=== PATIENT | male | born 1990 | race Caucasian/White ===

== ENCOUNTER 2018-12-22 22:23 | Emergency (ER) | payer OTHER ==
--- NOTE | 2018-12-22 22:41 | ED Physician Documentation ---
History of Present Illness - Stated complaint Stated Complaint: THROAT LAC - Chief complaint Chief Complaint: Laceration - History obtained from History obtained from: Patient - History of Present Illness Timing: Prior to arrival - Additonal information Additional information: Patient is an otherwise healthy 28-year-old male presenting with multiple lacerations to the left neck after accidentally tripping and cutting himself on an aluminum post he was caring. Patient reports that he was building a pool table and removing aluminum material to the garbage when he accidentally tripped and cut himself. Patient denies other injuries or complaints. Patient reports mild discomfort, as well as bleeding, which is controlled with pressure. Patient denies changes in voice, difficulty swallowing, difficulty breathing. Tetanus current. Patient denies other improving or worsening factors to his symptoms. Review of Systems Skin: reports: Laceration (s) PD PAST MEDICAL HISTORY - Past Medical History Past Medical History: No - Past Surgical History Past Surgical History: No - Present Medications Home Medications: Ambulatory Orders Medication Instructions Recorded Confirmed No Known Home Medications 12/22/18 12/22/18 - Allergies Allergies/Adverse Reactions: Allergies Allergy/AdvReac Type Severity Reaction Status Date / Time No Known Drug Allergies Allergy Verified 12/22/18 22:31 PD ED PE NORMAL - General General: Alert and oriented X 3, No acute distress, Well developed/nourished - HEENT HEENT: Atraumatic, Moist mucous membranes - Cardiac Cardiac: RRR, No murmur - Respiratory Respiratory: No respiratory distress, Clear bilaterally - Derm Derm: Normal color, Warm and dry, No rash, Other (About 2 cm linear laceration to upper left lateral neck, otherwise uncomplicated, does not probe or involve underlying structures. About 2 cm linear laceration, also superficial and withou t damage to underlying structures, but with superficial extension for about 3-4 inches in pattern of dragging across neck) - Neuro Neuro: Alert and oriented X 3, No motor deficit, No sensory deficit - Psych Psych: Normal mood, Normal affect Results - Vitals Vitals: Vital Signs - 24 hr 12/22/18 22:29 Temperature 36.8 C Heart Rate 79 Respiratory 18 Rate Blood Pressure 146/99 H O2 Saturation 98 Oxygen O2 Source Room air Procedures - Laceration (location) Neck Length in cm: 4 (2 lacerations) Wound type: Linear, Curved Neurovascular status: Sensory intact, Motor intact, Vascular intact Anesthesia: LET, Lidocaine 1% with epi Wound Preparation: Irrigated copiously NS Skin layer closure: Nylon, Sutures - enter # (12 total- 3 for upper 2 cm linear laceration and 9 for lower 2 cm elliptical laceration) Other: Patient tolerated well, No complications, Neurovascular intact, Tetanus UTD Complexity: Simple PD MEDICAL DECISION MAKING - ED course Complexity details: re-evaluated patient, considered differential, d/w patient, d/w family ED course: Patient presenting with 2 superficial lacerations to the left neck after accidentally tripping while carrying aluminum material. Patient denies other injuries and tetanus up-to-date. Wounds do not probe and do not find evidence of other vascular injuries or damage to underlying structures. Do not feel that patient is at risk from an airway standpoint or experiencing other issues to this zone of the neck which would require further invasive testing or imaging.Letter placed and wound was irrigated and cleaned appropriately. Add itional anesthetic injected and wounds repaired without issue in the ED. Had extensive discussions regarding restrictions, timing of suture removal, supportive cares, return precautions, and follow-up. Patient voiced understanding and is comfortable with discharge plan. Departure - Departure Disposition: 01 Home, Self Care Clinical Impression: Laceration Condition: Good Instructions: ED Laceration All Follow-Up: your,doctor [Other] - Within 3 Days Comments: Please keep area clean and dry, using running water and soap only to clean. Please be aware of activities that could put strain on this area as additional strain or tension could cause reopening of wounds. Please return to ED, urgent care, your primary care physician in 10 days for suture removal. Return earlier if experiencing signs of infection, reopening of wound, or other concerns. Forms: Activity restrictions
[2018-12-22] MEDS ORDERED: LIDOCAINE-EPINEPH-TETRACAINE 3 ML SYRINGE TOP STA (22:51)
[2018-12-22] MEDS ORDERED: LIDOCAINE-EPINEPH-TETRACAINE 3 ML SYRINGE TOP ONE (22:56)
[2018-12-23] MEDS ORDERED: LIDOCAINE 1%-EPI 1:100000 30 ML MDV TD STA (00:04)
[2018-12-23 00:52] VITALS: BP 132/74
== END 2018-12-23 00:52 | disposition home or self-care (01) ==
LOC: ED 22:23
DX: S11.81XA Laceration without foreign body of other specified part of neck, initial encounter (principal); W26.8XXA Contact with other sharp object(s), not elsewhere classified, initial encounter; Y93.H3 Activity, building and construction
CPT/HCPCS: 12002; 99282; 99283

== ENCOUNTER 2019-10-22 20:15 | Emergency (ER) | payer OTHER ==
[2019-10-22] MEDS ORDERED: HYDROcod/ACETAM 5/325 MG TABLET PO STA (20:53)
--- NOTE | 2019-10-22 21:25 | ED Physician Documentation ---
History of Present Illness - Stated complaint Stated Complaint: POST OP/MOUTH PX - Chief complaint Chief Complaint: Heent - History obtained from History obtained from: Patient - History of Present Illness Quality: DULL Radiates to: THE ENTIRE MOUTH Improved by: REST Worsened by: CHEWING AND OPENING JAW - Additonal information Additional information: 29 YEAR OLD MALE PRESENTS TO THE EMERGENCY DEPARTMENT BECAUSE OF CONGESTION, FEVER AND POST OPERATIVE PAIN. PATIENT HAD TWO UPPER WISDOM TEETH EXTRACTED. DENTAL GRAFT WAS PLACED TO LOWER JAW AT THE SAME TIME BY HIS ORAL SURGEON ON BASE. PATIENT STARTED EXPERIENCING A SORE THROAT, NASAL CONGESTION AND FEVER SINCE YESTERDAY. HE CAME TO THE ED FOR EVALUATION. HE HAS NO DROOLING OR TRISMUS. PATIENT DENIES ANY FACIAL SWELLING OR PAIN WITH SWALLOWING. NO NECK PAIN OR NECK STIFFNESS. Review of Systems Constitutional: denies: Fever, Chills PD PAST MEDICAL HISTORY - Past Medical History Cardiovascular: None Respiratory: None Neuro: None Endocrine/Autoimmune: None GI: None : None HEENT: None Psych: None Musculoskeletal: None Derm: None - Past Surgical History Past Surgical History: No - Present Medications Home Medications: Ambulatory Orders Medication Instructions Recorded Confirmed Penicillin V Potassium 500 mg PO Q6HR #40 tablet 10/22/19 - Allergies Allergies/Adverse Reactions: Allergies Allergy/AdvReac Type Severity Reaction Status Date / Time No Known Drug Allergies Allergy Verified 12/22/18 22:31 - Social History Does the pt smoke?: No Smoking Status: Never smoker Does the pt drink ETOH?: Yes Does the pt have substance abuse?: No - Immunizations Immunizations are current?: Yes - POLST Patient has POLST: No PD ED PE NORMAL - General General: Alert and oriented X 3 - HEENT HEENT: Atraumatic, Other (NO FACIAL SWELLING NOTED. MILD TRISMUS. NO DROOLING. NO ABNORMAL SWELLING TO SUBMANDIBULAR REGION. SUTURES TO THE LOWER 1ST MOLARS WRE IN PLACE. NO DRAINAGE OR BLEEDING. 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 SUTURES WERE IN PLACE WITHOUT BLEEDING, DRAINAGE OR EVIDENCE OF ABSCESS. NO FACIAL SWELLING NOTED. NO DROOLING AND MILD TRISMUS WAS NOTED ON EXAM. INFLUENZA WAS NEGATIVE. HE LIKELY HAS UPPER RESPIRATORY INFECTION TO EXACERBATE HIS POST OPERATIVE PAIN. GIVEN HX OF FEVER, HOWEVER, I WILL GO AHEAD AND START HIM ON A COURSE OF PENICILLIN FOR POSSIBLE DENTAL INFECTION. PATIENT HAS A FOLLOW UP APPOINTMENT WITH HIS SURGEON NEXT WEEK. I ENCOURAGE HIM TO FOLLOW UP SOONER AND SOON POSSIBLE. STRICT RETURN INSTRUCTIONS WERE GIVEN. HE EXPRESSED VERBAL UNDERSTANDING. HE WAS COMFORTABLE WITH PLAN. PATIENT WAS DISCHARGED IN STABLE CONDITION. Departure - Departure Disposition: 01 Home, Self Care Clinical Impression: Pain, dental, Post-operative pain Condition: Stable Instructions: ED Tooth Pain, ED Post Op Pain, ED URI Viral Follow-Up: MARIO Roy [Provider Group] - Within 3 Days Prescriptions: Penicillin V Potassium 500 mg PO Q6HR #40 tablet Comments: PLEASE FOLLOW UP WITH YOUR ORAL SURGEON SOON POSSIBLE IN 2 DAYS. I BELIEVE YOUR FEVER IS LIKELY DUE TO YOUR UPPER RESPIRATORY INFECTION RATHER THAN COMPLICATIONS FROM YOUR PROCEDURE. HOWEVER, PLEASE GO AHEAD AND FILL THE ANTIBIOTIC IF YOUR PAIN PERSISTS, WORSENS OR A FEVER CONTINUES. Discharge Date/Time: 10/22/19 21:34
[2019-10-22 21:32] VITALS: BP 137/72
== END 2019-10-22 21:34 | disposition home or self-care (01) ==
LOC: ED 20:15
DX: K08.89 Other specified disorders of teeth and supporting structures (principal); G89.18 Other acute postprocedural pain; Z98.818 Other dental procedure status; R50.9 Fever, unspecified; R09.81 Nasal congestion
CPT/HCPCS: 87275; 87276; 99283; A9270

== ENCOUNTER 2019-10-27 20:59 | Emergency (ER) | payer OTHER ==
--- NOTE | 2019-10-27 21:50 | XRAY Report ---
Reason: Trauma Procedure Date: 10/27/2019 Accession Number: [id number] / [id number] Procedure: XR - Knee 4 View LT CPT Code: Final Report FULL RESULT: EXAM: LEFT KNEE RADIOGRAPHY EXAM DATE: 10/27/2019 09:39 PM. CLINICAL HISTORY: Trauma. COMPARISON: None. TECHNIQUE: 4 views. FINDINGS: Bones: Normal. No fractures or bone lesions. Joints: Normal. No effusion. No subluxations. Soft Tissues: Normal. No soft tissue swelling. IMPRESSION: No fracture or acute osseous abnormality. RADIA
--- NOTE | 2019-10-27 21:50 | XRAY Report ---
Reason: Trauma Procedure Date: 10/27/2019 Accession Number: [id number] / [id number] Procedure: XR - Knee 4 View RT CPT Code: Final Report FULL RESULT: EXAM: RIGHT KNEE RADIOGRAPHY EXAM DATE: 10/27/2019 09:40 PM. CLINICAL HISTORY: Trauma. COMPARISON: None. TECHNIQUE: 4 views. FINDINGS: Bones: Normal. No fractures or bone lesions. Joints: Normal. No effusion. No subluxations. Soft Tissues: Normal. No soft tissue swelling. IMPRESSION: No fracture or acute osseous abnormality. RADIA
--- NOTE | 2019-10-27 22:20 | ED Physician Documentation ---
PD HPI LOWER EXT INJURY - Stated complaint Stated Complaint: BILAT KNEE PX - Chief complaint Chief Complaint: Trauma Ext - History obtained from History obtained from: Patient - Additional information Additional information: Patient comes emergency department complaining of bilateral medial knee pain after [place] doing the splits on the dance floor last night. Patient states that he had had a couple drinks and that the dance floor was quite slippery. He was trying to do the "wobble" when his feet slipped out to the sides. Patient states that he thought he was going to do the splits, but then, his knees flexed medially. He did not feel a pop or snap, but has noticed pain in both knees today. He states the right is worse than the left. He has been able to walk around but has been limping on the right. He denies any distal numbness or tingling. No prior injury to the knee that he knows of. No other complaints at this time. Review of Systems Ten Systems: 10 systems reviewed and negative Constitutional: reports: Reviewed and negative Eyes: reports: Reviewed and negative Ears: reports: Reviewed and negative Nose: reports: Reviewed and negative Throat: reports: Reviewed and negative Cardiac: reports: Reviewed and negative Respiratory: reports: Reviewed and negative GI: reports: Reviewed and negative : reports: Reviewed and negative Skin: reports: Reviewed and negative Musculoskeletal: reports: Joint pain, Joint swelling, Pain with weight bearing Neurologic: reports: Reviewed and negative Psychiatric: reports: Reviewed and negative Endocrine: reports: Reviewed and negative Immunocompromised: reports: Reviewed and negative PD PAST MEDICAL HISTORY - Past Medical History Past Medical History: No Cardiovascular: None Respiratory: None Neuro: None Endocrine/Autoimmune: None GI: None : None HEENT: None Psych: None Musculoskeletal: None Derm: None - Past Surgical History Past Surgical History: Yes - Present Medications Home Medications: Ambulatory Orders Medication Instructions Recorded Confirmed No Known Home Medications 10/27/19 10/27/19 - Allergies Allergies/Adverse Reactions: Allergies Allergy/AdvReac Type Severity Reaction Status Date / Time No Known Drug Allergies Allergy Verified 10/27/19 21:07 - Social History Does the pt smoke?: No Smoking Status: Never smoker Does the pt drink ETOH?: Yes Does the pt have substance abuse?: No - Immunizations Immunizations are current?: Yes - POLST Patient has POLST: No PD ED PE NORMAL - Vitals Vital signs reviewed: Yes - General General: Alert and oriented X 3, No acute distress - HEENT HEENT: Atraumatic, EOMI - Neck Neck: Supple, no meningeal sign - Respiratory Respiratory: No respiratory distress - Derm Derm: Normal color, Warm and dry, No rash - Extremities Extremities: No deformity, Other (Patient has mild edema of his right knee and no edema of the left. He has tenderness along the medial aspect of both knees without deformity or effusion. Patient is able to fully extend both knees and is able to flex to about 45 degrees bilaterally for being inhibited by pain. Knees are stable with both anterior posterior stress and varus/valgus stress. No tenderness over the patella or lateral aspect of the knees bilaterally. Quadriceps and patellar tendons are intact.) - Neuro Neuro: Alert and oriented X 3 - Psych Psych: Normal mood, Normal affect Results - Vitals Vitals: Vital Signs - 24 hr 10/27/19 21:08 Temperature 37 C Heart Rate 73 Respiratory 16 Rate Blood Pressure 186/113 H O2 Saturation 98 Oxygen O2 Source Room air PD MEDICAL DECISION MAKING - ED course Complexity details: reviewed results, re-evaluated patient, considered differential, d/w patient ED course: Patient was sent for bilateral knee x-rays, which were found to be unremarkable. He was placed in a knee brace on the Right, as he felt that he needed more support. He also requested a pair of crutches. The patient was given a note for modified duty at work and [place] to discuss whether MRI is necessary, if his symptoms have not improved. Departure - Departure Disposition: 01 Home, Self Care Clinical Impression: Knee sprain, bilateral Condition: Good Instructions: ED Sprain Knee Comments: You may use the knee brace on the right knee, as needed, and crutches as needed, as well. You may weight-bear as tolerated. You will need to have light duty at work until your knee is completely without pain on weightbearing. Specifically, you should not do any lifting more than 20 pounds, and should not do any weighted pivoting. Please see your primary care physician in follow-up if you are not feeling any improvement at all in the next couple of weeks. You may take ibuprofen and Tylenol, as needed for discomfort, and use Ice and elevation to help with the pain and swelling, as well. Forms: Activity restrictions
[2019-10-27 22:34] VITALS: BP 146/90
== END 2019-10-27 22:45 | disposition home or self-care (01) ==
LOC: ED 20:59
DX: S83.92XA Sprain of unspecified site of left knee, initial encounter (principal); S83.91XA Sprain of unspecified site of right knee, initial encounter; X50.1XXA Overexertion from prolonged static or awkward postures, initial encounter; Y93.41 Activity, dancing
CPT/HCPCS: 99283; 99284

== ENCOUNTER 2019-11-19 14:44 | Outpatient (CLI) | payer OTHER ==
--- NOTE | 2019-11-20 03:38 | MRI Report ---
Reason: INJURY TO RT KNEE Procedure Date: 11/19/2019 Accession Number: [id number] / [id number] Procedure: MRI - Knee RT W/O CPT Code: Final Report FULL RESULT: EXAM: RIGHT KNEE MRI WITHOUT CONTRAST EXAM DATE: 11/19/2019 03:38 PM. CLINICAL HISTORY: INJURY TO RT KNEE. COMPARISON: None. TECHNIQUE: Multiplanar, multisequence T1-weighted and fluid-sensitive sequences of the knee without contrast. Other: None. FINDINGS: Bones: No fractures or subluxations. No marrow edema. No bone lesions. Articular Cartilage: Unremarkable. Medial Meniscus: The medial meniscus is intact. Lateral Meniscus: The lateral meniscus is intact. Cruciate Ligaments: The anterior and posterior cruciate ligaments are intact. Collateral Ligaments: The medial collateral and lateral collateral ligamentous structures are intact. Tendons: Edema at the pes anserinus bursa with adjacent thickening of the sartorius tendon. The quadriceps, patellar, semimembranosus, and popliteus tendons are unremarkable. Musculature: No edema or fatty atrophy. Other: No effusion. No popliteal cyst. No intra-articular bodies. The medial and lateral retinacula are intact. Focal edema and soft tissue thickening at the superior lateral aspect of Hoffa fat pad and lateral aspect of the fat adjacent to the suprapatellar joint (images 32 and 21 series 401). Otherwise, the soft tissues are intact. IMPRESSION: 1. Sartorius tendinopathy and pes anserinus bursitis. 2. Two foci of edema and soft tissue thickening at the superolateral aspect of Hoffa fat pad and at the suprapatellar fat may reflect focal synovitis or inflammation from rubbing from the overlying infrapatellar tendon and patella. RADIA
== END 2019-11-19 14:45 | disposition home or self-care (01) ==
LOC: DI 14:44
DX: S89.91XA Unspecified injury of right lower leg, initial encounter (principal); M71.9 Bursopathy, unspecified; R60.0 Localized edema

== ENCOUNTER 2020-01-25 11:47 | Emergency (ER) | payer OTHER ==
--- NOTE | 2020-01-25 13:09 | ED Physician Documentation ---
PD HPI NVD - Stated complaint Stated Complaint: NVD - Chief complaint Chief Complaint: Abd Pain - History obtained from History obtained from: Patient - History of Present Illness Timing - onset: Last night (2 am) Timing - details: Abrupt onset Associated symptoms: Loss of appetite. No: Fever, Abdominal pain, Hematemesis, Near syncope / syncope Contributing factors: Bad food (he says he ate [employer] late last evening and does not usually eat fast food. Onset few hours later.). No: Sick contact, Travel, Recent antibiotics Improved by: No: Laying still, Vomiting Worsened by: Eating (attempted PO causes nausea and repeat vomiting) Similar symptoms before: Has not had sx before Recently seen: Not recently seen Review of Systems Constitutional: reports: Fatigue. denies: Fever, Chills, Myalgias Nose: denies: Rhinorrhea / runny nose, Congestion Throat: denies: Sore throat Respiratory: denies: Cough GI: reports: Nausea, Vomiting, Diarrhea. denies: Abdominal Pain, Abdominal Swelling, Hematemesis, Bloody / black stool : denies: Dysuria, Frequency PD PAST MEDICAL HISTORY - Past Medical History Past Medical History: Yes Cardiovascular: None Respiratory: None Neuro: None Endocrine/Autoimmune: None GI: Ulcers : None HEENT: None Psych: None Musculoskeletal: None Derm: None - Past Surgical History Past Surgical History: Yes - Present Medications Home Medications: Ambulatory Orders Medication Instructions Recorded Confirmed Diphenoxylate/Atropine [Lomotil] 1 each PO QID PRN #12 tablet 01/25/20 Ondansetron Odt [Zofran] 4 mg TL Q6H PRN #10 tablet 01/25/20 - Allergies Allergies/Adverse Reactions: Allergies Allergy/AdvReac Type Severity Reaction Status Date / Time No Known Drug Allergies Allergy Verified 01/25/20 11:59 - Social History Does the pt smoke?: No Smoking Status: Never smoker Does the pt drink ETOH?: Yes Does the pt have substance abuse?: No - Immunizations Immunizations are current?: Yes - POLST Patient has POLST: No PD ED PE NORMAL - Vitals Vital signs reviewed: Yes - General General: Alert and oriented X 3, No acute distress, Well developed/nourished - HEENT HEENT: Pharynx benign - Neck Neck: Supple, no meningeal sign, No adenopathy - Cardiac Cardiac: RRR, No murmur - Respiratory Respiratory: Clear bilaterally - Abdomen Abdomen: Normal bowel sounds, Soft, Non distended, No organomegaly, Other (some tenderness epigastric to mid abd without peritoneal signs. ) Results - Vitals Vitals: Oxygen O2 Source Room air - Labs Labs: Laboratory Tests 01/25/20 13:30 Sodium 140 Potassium 3.8 Chloride 105 Carbon Dioxide 24 Anion Gap 11.0 BUN 15 Creatinine 0.8 Estimated GFR (MDRD) 115 Glucose 101 H Calcium 9.1 PD MEDICAL DECISION MAKING - ED course Complexity details: re-evaluated patient (feeling better with IV fluids and meds. ), considered differential (seems like viral GE. ), d/w patient Departure - Departure Disposition: Home, Self Care Clinical Impression: Nausea vomiting and diarrhea Condition: Stable Record reviewed to determine appropriate education?: Yes Instructions: ED Diet Vomiting Diarrhea Follow-Up: CESAR JORDAN MD [Primary Care Provider] - Prescriptions: Diphenoxylate/Atropine [Lomotil] 1 each PO QID PRN #12 tablet PRN Reason: Diarrhea Ondansetron Odt [Zofran] 4 mg TL Q6H PRN #10 tablet PRN Reason: Nausea / Vomiting Comments: Small frequent fluids and bland food. Use ondansetron if needed for nausea and Lomotil for diarrhea. Off work today and tomorrow. Recheck if not improved well and completely over the next day or 2. Return if worse again. Forms: Activity restrictions Discharge Date/Time: 01/25/20 15:15
[2020-01-25] MEDS ORDERED: SODIUM CHLORIDE 0.9% 1,000 ML IV STA (13:27)
[2020-01-25] MEDS ORDERED: ONDANSETRON 4 MG/2 ML VIAL IVP STA (13:27)
[2020-01-25] MEDS ORDERED: DIPHENOX/ATROPINE 2.5/0.025 MG TABLET PO STA (13:27)
[2020-01-25] MEDS ORDERED: KETOROLAC 30 MG/ML VIAL IVP STA (13:27)
[2020-01-25] MEDS ORDERED: MORPHINE 2 MG/ML CARPUJECT IVP STA (13:27)
[2020-01-25 13:47] LABS: CALCIUM 9.1 mg/dL (8.5-10.3); CREATININE 0.8 mg/dL (0.6-1.2)
[2020-01-25 15:10] VITALS: BP 120/74
== END 2020-01-25 15:15 | disposition home or self-care (01) ==
LOC: ED 11:47
DX: R11.2 Nausea with vomiting, unspecified (principal); R19.7 Diarrhea, unspecified
CPT/HCPCS: 36415; 80048; 96374; 96375; 99283; 99284; A9270

== ENCOUNTER 2021-05-08 12:43 | Emergency (ER) | payer OTHER ==
[2021-05-08 12:53] VITALS: BP 124/68
--- NOTE | 2021-05-08 13:21 | ED Physician Documentation ---
History of Present Illness - Stated complaint Stated Complaint: ANKLE PX (BOTH) - Chief complaint Chief Complaint: Trauma Ext - Additonal information Additional information: 31-year-old male presents emergency department for evaluation of bilateral ankle pain. Reports that approximately 3 weeks ago he was walking tripped and sprained his right ankle. He had been using an ankle wrap on it which was making it feel better but he notices that his he uses the ankle more it often pops. However he can bear nearly full weight. Yesterday evening he tripped again but this time he sprained his left ankle and has a significant amount of lateral malleoli are swelling. No history of previous injury to either ankle in the past. Review of Systems Constitutional: reports: Reviewed and negative Nose: reports: Reviewed and negative Throat: reports: Reviewed and negative Cardiac: reports: Reviewed and negative Respiratory: reports: Reviewed and negative GI: reports: Reviewed and negative Skin: reports: Reviewed and negative Musculoskeletal: reports: Joint pain (bilateral ankles) PD PAST MEDICAL HISTORY - Past Medical History Past Medical History: Yes Cardiovascular: None Respiratory: None Neuro: None Endocrine/Autoimmune: None GI: Ulcers : None HEENT: None Psych: None Musculoskeletal: Chronic back pain Derm: None - Past Surgical History Past Surgical History: Yes HEENT: Myringotomy (tubes) - Present Medications Home Medications: Ambulatory Orders Medication Instructions Recorded Confirmed No Known Home Medications 05/08/21 05/08/21 - Allergies Allergies/Adverse Reactions: Allergies Allergy/AdvReac Type Severity Reaction Status Date / Time No Known Drug Allergies Allergy Verified 05/08/21 12:53 - Social History Does the pt smoke?: No Smoking Status: Never smoker Does the pt drink ETOH?: Yes Does the pt have substance abuse?: No - Immunizations Immunizations are current?: Yes - POLST Patient has POLST: No PD ED PE EXPANDED - General General: Alert, No acute distress - Extremities Extremities: Right ankle (Mild tenderness on the lateral malleolus with no swelling. Full range of Motion of the ankle in all planes. Able to bear nearly full weight. No tenderness at the base of the fifth metatarsal. No Achilles tenderness.), Left ankle (Swelling and ecchymosis to the lateral malleolus. Normal dorsi and plantar flexion. No pain at the base of the fifth metatarsal. 2+ DP pulse. Full range of motion passively. Difficulty bearing weight on the heel of the foot) Results - Vitals Vitals: Vital Signs - 24 hr 05/08/21 12:50 Temperature 36.7 C Heart Rate 75 Respiratory 16 Rate Blood Pressure 124/68 O2 Saturation 98 Oxygen O2 Source Room air - Rads (name of study) right ankle Radiology: EMP read indepedently (no acute fx or dislocation) left ankle Radiology: EMP read indepedently (no acute fracture or dislocation) PD MEDICAL DECISION MAKING - ED course Complexity details: reviewed results, d/w patient ED course: 31-year-old male presents emergency department for evaluation of bilateral ankle pain. Reports inverting his right ankle 3 weeks ago and now his left ankle last night. At the time of exam he has mild tenderness of bilateral lateral malleolus. The acute injury on the left ankle is advised to use a compressive Kike wrap and crutches as needed for ambulation. Recommend Motrin for analgesia. Given that he has bilateral ankle sprains I have advised close follow-up with [facility] as he would likely benefit from physical therapy moving forward. Departure - Departure Disposition: 01 Home, Self Care Clinical Impression: Left ankle sprain Qualifiers: Encounter type: initial encounter Involved ligament of ankle: unspecified ligament Qualified Code(s): S93.402A - Sprain of unspecified ligament of left ankle, initial encounter Right ankle sprain Qualifiers: Encounter type: initial encounter Involved ligament of ankle: unspecified ligament Qualified Code(s): S93.401A - Sprain of unspecified ligament of right ankle, initial encounter Condition: Stable Record reviewed to determine appropriate education?: Yes Instructions: ED Sprain Ankle Comments: Néstor you have sprained both of your ankles. The left one is more acute. I recommended that you wear the compressive Ankle wrap on both ankles when out of bed. Please use the crutches to help you ambulate. Weight off bearing at this time is going to be important to allow these both to heal. The x-rays do not show any broken bones. However because you have sprained both your ankles I do recommend you see [facility] and follow-up as you will benefit from physical therapy. Please use ibuprofen to help with any discomfort.
--- NOTE | 2021-05-08 13:39 | XRAY Report ---
PROCEDURE: Ankle 3 View LT INDICATIONS: Trauma TECHNIQUE: 3 views of the ankle were acquired. COMPARISON: None. FINDINGS: Bones: No fractures or dislocations. Ankle mortise is normally aligned. No suspicious bony lesions . Small exostosis in the midfoot suspected. Soft tissues: Mild swelling at the lateral malleolus. No tibiotalar joint effusion. Achilles tendon appears normal. IMPRESSION: No acute osseous abnormality. Mild swelling at the lateral malleolus. Reviewed by: Jesus Strickland MD on 05/08/2021 12:38 PM [facility] Approved by: Jesus Strickland MD on 05/08/2021 12:38 PM [facility] Station ID: [id number]
--- NOTE | 2021-05-08 13:41 | XRAY Report ---
PROCEDURE: Ankle 3 View RT INDICATIONS: sprain 3 weeks TECHNIQUE: 3 views of the ankle were acquired. COMPARISON: Contralateral left ankle radiographs. FINDINGS: Bones: No definite fracture. Possible trace periosteal reaction adjacent to the medial malleolus. No definite cortical step-off. No dislocation. Ankle mortise is normally aligned. No suspicious bony lesions. Soft tissues: Trace tibiotalar joint effusion. Achilles tendon appears normal. IMPRESSION: Possible periosteal reaction at the medial malleolus. This could be the sequelae of sprain. Reviewed by: Jesus Strickland MD on 05/08/2021 12:40 PM [facility] Approved by: Jesus Strickland MD on 05/08/2021 12:40 PM [facility] Station ID: [id number]
== END 2021-05-08 13:44 | disposition home or self-care (01) ==
LOC: ED 12:43
DX: S93.402A Sprain of unspecified ligament of left ankle, initial encounter (principal); S93.401A Sprain of unspecified ligament of right ankle, initial encounter; W18.40XA Slipping, tripping and stumbling without falling, unspecified, initial encounter; Y93.01 Activity, walking, marching and hiking
CPT/HCPCS: 99282; 99283

== ENCOUNTER 2023-10-05 16:30 | Outpatient (CLI) | payer OTHER ==
[2023-10-08 04:08] LABS: HBsAG SCREEN Negative (Negative); RPR Non Reactive (Non Reactive)
[2023-10-08 09:08] LABS: HIV SCREEN 4TH GENERATION Non Reactive (Non Reactive)
[2023-10-11 18:07] LABS: HCV RNA QUANTITATION HCV Not Detected IU/mL (.)
== END 2023-10-05 16:45 | disposition home or self-care (01) ==
LOC: LAB.N 16:30
PROVIDERS: ATTEND Physician Assistant Medical
DX: Z02.1 Encounter for pre-employment examination (principal)
CPT/HCPCS: 36415; 81599; 86592; 87340; 87389; 87522

== ENCOUNTER 2023-10-11 10:38 | Outpatient (CLI) | payer OTHER ==
--- NOTE | 2023-10-11 14:39 | XRAY Report ---
PROCEDURE: Chest 2V INDICATIONS: PRE EMPLOYMENT PHYSICAL EXAMINATION TECHNIQUE: 2 views of the chest were acquired. COMPARISON: None. FINDINGS: Surgical changes and devices: None. Lungs and pleura: No consolidation or pleural effusions. Mediastinum: Normal heart size Bones and chest wall: Unremarkable IMPRESSION: No acute radiographic abnormality. Reviewed by: Maykel Wiley MD on 10/11/2023 2:38 PM PST Approved by: Maykel Wiley MD on 10/11/2023 2:38 PM [facility] Station ID: [id number]
== END 2023-10-11 10:39 | disposition home or self-care (01) ==
LOC: DI.N 10:38
PROVIDERS: ATTEND Physician Assistant Medical
DX: Z02.1 Encounter for pre-employment examination (principal); Z11.1 Encounter for screening for respiratory tuberculosis